=== PATIENT | female | born 1955 | race Native Hawaiian/Other Pacific Islander ===

== ENCOUNTER 2019-12-17 10:27 | Inpatient (IN) | payer OTHER ==
[~2019-12-17] VITALS: Ht 165.1 cm; Wt 102.2 kg
[2019-12-17 12:10] LABS: PLATELET COUNT 387 K/uL (152-353)
[2019-12-17 12:53] LABS: POTASSIUM 4.1 mmol/L (3.6-5.2)
[2019-12-17 13:30] VITALS: BP 147/93; TEMP 98.6; Ht 165.1 cm; Wt 102.2 kg
[2019-12-17] MEDS ORDERED: OMEPRAZOLE DR40 MG PO (13:40)
[2019-12-17] MEDS ORDERED: HYDROCHLOROT12.5 M1 PO (13:42)
[2019-12-17] MEDS ORDERED: LISI20TA11 PO (13:42)
[2019-12-17] MEDS ORDERED: MOBIC15 MG PO (13:42)
[2019-12-17] MEDS ORDERED: PRAVASTATIN10 MG PO (13:43)
[2019-12-17 13:59] VITALS: BP 159/91; TEMP 98.8
[2019-12-17 20:14] VITALS: BP 145/88; TEMP 98.6
[2019-12-17 23:52] VITALS: BP 141/88; TEMP 98.3
[2019-12-18] VITALS (16 sets, daily range): BP systolic 111–188; BP diastolic 53–82; TEMP 97.6–98.6
[2019-12-18 14:59] LABS: PLATELET COUNT 446 K/uL (152-353)
[2019-12-18 15:05] LABS: POTASSIUM 3.2 mmol/L (3.6-5.2)
[2019-12-18 16:59] LABS: PARTIAL THROMBOPLASTIN TIME 23.5 SECONDS (24.5-33.6)
[2019-12-19] VITALS (69 sets, daily range): BP systolic 103–157; BP diastolic 50–87; TEMP 97.6–98.6
[2019-12-19 05:31] LABS: POTASSIUM 4.3 mmol/L (3.6-5.2)
[2019-12-19 05:33] LABS: PARTIAL THROMBOPLASTIN TIME 85.1 SECONDS (24.5-33.6)
[2019-12-19 05:40] LABS: PLATELET COUNT 398 K/uL (152-353)
[2019-12-20] VITALS (11 sets, daily range): BP systolic 127–161; BP diastolic 60–87; TEMP 98.2–98.6
[2019-12-20 07:55] LABS: PLATELET COUNT 358 K/uL (152-353)
[2019-12-20 08:06] LABS: POTASSIUM 3.8 mmol/L (3.6-5.2)
== END 2019-12-20 17:35 | disposition short-term general hospital (02) | DRG 202 ==
LOC: MED/SURG 10:27 → ICU 12-18 16:15 → MED/SURG 12-18 16:16 → ICU 12-18 16:16 → MED/SURG 12-18 19:09 → ICU 12-18 19:09
PROVIDERS: Family Medicine; Internal Medicine; ADMIT Nurse Practitioner
DX: J20.9 Acute bronchitis, unspecified (principal); I21.4 Non-ST elevation (NSTEMI) myocardial infarction; I10 Essential (primary) hypertension; K21.9 Gastro-esophageal reflux disease without esophagitis; M15.8 Other polyosteoarthritis; E87.6 Hypokalemia; R06.03 Acute respiratory distress; R16.0 Hepatomegaly, not elsewhere classified; K76.0 Fatty (change of) liver, not elsewhere classified; I25.10 Atherosclerotic heart disease of native coronary artery without angina pectoris; R09.02 Hypoxemia
CPT/HCPCS: 36415; 80048; 80053; 82550; 82553; 83605; 83735; 84484; 85027; 85379; 85610; 85730; 87040; 87502; 93005; 94640; 94664; 94760; 96374; 96375; 99220; G0378; G0379; J0132; J0360; J0456; J0696; J1644; J1650; J2060; J2405; J2920; J2930; J3490

== ENCOUNTER 2019-12-20 17:47 | Outpatient (CLI) | payer OTHER ==
[~2019-12-20 17:47] MED LIST: HYDROCHLOROT12.5 M1 PO; LISI20TA11 PO; MOBIC15 MG PO; OMEPRAZOLE DR40 MG PO; PRAVASTATIN10 MG PO
== END 2019-12-20 18:21 | disposition short-term general hospital (02) ==
LOC: AMB 17:47
DX: I21.4 Non-ST elevation (NSTEMI) myocardial infarction (principal); R94.31 Abnormal electrocardiogram [ECG] [EKG]
CPT/HCPCS: A0425; A0427

== ENCOUNTER 2021-02-10 11:02 | Outpatient (CLI) | payer OTHER | END 2021-02-10 19:14 | disposition home or self-care (01) | LOC: RAD 11:02 | PROVIDERS: ATTEND Nurse Practitioner | DX: J20.8 Acute bronchitis due to other specified organisms (principal) ==

== ENCOUNTER 2021-03-01 15:29 | Emergency (ER) | payer OTHER ==
[~2021-03-01] VITALS: Ht 165.1 cm; Wt 90.7 kg
[2021-03-01 16:43] LABS: PLATELET COUNT 378 K/uL (152-353)
[2021-03-01 16:50] LABS: POTASSIUM 3.3 mmol/L (3.6-5.2)
[2021-03-01 18:02] VITALS: BP 134/91; TEMP 97.5
== END 2021-03-01 18:05 | disposition home or self-care (01) ==
LOC: ED 15:29
PROVIDERS: Hospitalist
DX: K52.9 Noninfective gastroenteritis and colitis, unspecified (principal); R11.2 Nausea with vomiting, unspecified; R19.7 Diarrhea, unspecified; Z20.822 Contact with and (suspected) exposure to COVID-19
CPT/HCPCS: 36415; 80053; 82150; 83690; 85027; 87635; 96360; 96365; 96368; 96375; 99284; J0696; J2405; U0003

== ENCOUNTER 2022-08-13 09:28 | Outpatient (CLI) | payer OTHER | END 2022-08-13 19:03 | disposition home or self-care (01) | LOC: US 09:28 | PROVIDERS: ATTEND Nurse Practitioner | DX: Z12.31 Encounter for screening mammogram for malignant neoplasm of breast (principal); R11.14 Bilious vomiting; Z13.820 Encounter for screening for osteoporosis; N95.8 Other specified menopausal and perimenopausal disorders ==